=== PATIENT | female | born 1950 | race Caucasian/White ===

== ENCOUNTER 2019-06-16 14:25 | Emergency (ER) | payer MEDICARE, MEDICAID ==
[~2019-06-16] VITALS: Ht 165.1 cm; Wt 56.0 kg
[~2019-06-16 14:25] MED LIST: DIPH-423 PO; DOCU-28 PO; EPIN0.3P3 IM; GUAI120015 PO; HYDR-4383 PO; METH4TAB3 PO; VALA10002 PO
[2019-06-16 15:51] VITALS: BP 150/60
== END 2019-06-16 16:02 | disposition home or self-care (01) ==
LOC: ER 14:25
DX: S90.31XA Contusion of right foot, initial encounter (principal); I10 Essential (primary) hypertension; Z90.710 Acquired absence of both cervix and uterus; Z88.2 Allergy status to sulfonamides; W22.8XXA Striking against or struck by other objects, initial encounter; Y93.89 Activity, other specified; Y92.89 Other specified places as the place of occurrence of the external cause; Y99.9 Unspecified external cause status
CPT/HCPCS: 73630; 99284